=== PATIENT | male | born 1955 | race Caucasian/White ===

== ENCOUNTER → 2020-11-04 09:56 | Outpatient (CLI) | payer MEDICARE, SELFPAY ==
--- NOTE | 2020-11-04 | DI.MRI_ITS ---
Exam(s) MR LOWER EXTREMITY LT WO/W CLINICAL HISTORY: OSTEOMYELITIS, M86.9. TECHNIQUE: Multiplanar multisequence MRI was performed. CONTRAST MATERIAL: IV Contrast: mL of Dotarem contrast administered. COMPARISON: None. FINDINGS: There are findings of a prior amputation of the great toe at the level of the MTP joint. Mild cystic changes seen at the distal aspect of the amputation. There is mild enhancement noted post contrast in the distal aspect of the 1st metatarsal. There are findings of a prior amputation of the head of the 2nd metatarsal. Mild marrow edema is see n in the proximal half of the proximal phalanx of the 2nd toe. There may also be mild edema in the d istal aspect of the 2nd metatarsal. There appears to be a fracture involving the distal aspect of the 3rd metatarsal. There is dorsal di slocation of the 3rd MTP joint. Marrow edema is seen throughout the 3rd metatarsal and the proximal and middle phalanges of the 3rd toe. Following contrast administration, there is enhancement involving the 3rd metatarsal and the proximal and middle phalanges of the 3rd toe suggestive of osteomyelitis. There is edema seen in the soft tissues on the dorsum and plantar surfaces of the foot adjacent to th e 2nd, 3rd and 4th toes. There is fluid seen around the flexor tendon of the 3rd toe. Degenerative signal changes are seen at the tarsometatarsal joints of the foot. There is a soft tissue defect on the plantar surface of the foot adjacent to the head of the 3rd meta tarsal which may reflect an ulcer. IMPRESSION: 1. Findings suspicious for osteomyelitis involving the 3rd metatarsal and the proximal and middle pha langes of the 3rd toe. 2. Skin ulcer on the plantar surface of the foot adjacent to the head of the 3rd metatarsal. 3. Amputations involving the great toe at the MTP joint and the head of the 2nd metatarsal. Marrow e robin is seen in the 2nd metatarsal and the proximal phalanx of the 2nd toe. This may be reactive or related to prior surgery. Osteomyelitis cannot be excluded. DATA REPOSITORY:
[2020-11-04] MEDS: Normal Saline Flush 10 ML SYR IVP (11:29)
[2020-11-04] MEDS: Gadoterate meglumine 20 ML VIAL 16 ML IVP (11:30)
== END ==
PROVIDERS: Visit Provider Podiatrist Foot & Ankle Surgery
DX: L97.429 Non-pressure chronic ulcer of left heel and midfoot with unspecified severity (principal); Z89.412 Acquired absence of left great toe
CPT/HCPCS: 73720

== ENCOUNTER 2021-09-14 11:50 | Day surgery (SDC) | payer OTHER, SELFPAY ==
[2021-09-14 12:03] VITALS: BP 99/66; PULSE 56; RESP 16; TEMP 36.8; O2SAT 97
--- NOTE | 2021-09-14 12:10 | ANES.PREOP_ITS ---
General Info Date of Service Date Performed: 09/14/21 Height: 5 ft 8 in Weight: 71 kg Body Mass Index (BMI): 23.8 Surgical Procedure: Operation Date: 09/14/21 13:40 Proposed Procedure Side Surgeon p Cataract Extraction with IOL Implant Left Lebron Ward MD Meds Allergies and Home Medications Allergies Allergy/AdvReac Type Severity Reaction Status Date / Time No Known Allergies Allergy Verified 09/14/21 12:01 Home Medication Medication Instructions Recorded docusate sodium 100 mg capsule 100 mg PO BID 09/11/21 (Colace) donepezil 23 mg tablet 23 mg PO HS 09/11/21 folic acid 1 mg tablet 2 mg PO DAILY 09/11/21 memantine 5 mg tablet 5 mg PO DAILY 09/11/21 metformin 750 mg tablet,extended 750 mg PO DAILY 09/11/21 release 24 hr olanzapine 2.5 mg tablet 2.5 mg PO DAILY 09/11/21 omeprazole 40 mg capsule,delayed 40 mg PO DAILY 09/11/21 release sertraline 100 mg tablet 100 mg PO DAILY 09/11/21 Current Visit Medications: Current Medications Generic Name Dose Route Start Last Admin Trade Name Freq PRN Reason Stop Dose Admin Acetaminophen 1,000 mg 09/14/21 06:00 Acetaminophen 500 Mg Tab PO Q4H PRN PRN Miscellaneous Medication 0 ml 09/14/21 06:00 Prednisolone 1%, Moxifloxacin 0.5%, Nepafenac 0.1% 5ml Btl OS DIRECTED [facility] Miscellaneous Medication 0 ml 09/14/21 06:00 Tropicam./Phenyleph. 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 Recurrent major depression Tubular adenoma of colon Type 2 diabetes mellitus Tobacco Smoking/Tobacco Use Status: Current every day Tobacco Type: cigars Alcohol Alcohol Intake: never Substance Use Substance use: Never Substance use type: does not use Vital Signs and Lab Results Vital Signs Most Recent Vital Signs in EMR: Temp Pulse Resp BP Pulse Ox 36.8 C 56 L 16 99/66 L 97 09/14/21 12:03 09/14/21 12:03 09/14/21 12:03 09/14/21 12:03 09/14/21 12:03 Lab Results Blood Type / Crossmatch: No Data to Display Complete Blood Count: No Data to Display Complete Metabolic Panel: No Data to Display Liver Function Panel: No Data to Display Coagulation Panel: No Data to Display Cardiac Panel: No Data to Display Arterial Blood Gas: No Data to Display Venous Blood Gas: No Data to Display Pancreas Panel: No Data to Display Thyroid Panel: No Data to Display Infectious Disease: No Data to Display Blood Cultures: No Data to Display Toxicology Panel: No Data to Display Anesthesia Assessment and Plan Anesthesia History Personal History: No History of Anesthesia Complications Family History: No Family History of Anesthesia Complications Exercise Tolerance Exercise Tolerance: Metabolic Equivalents>4 Pertinent Negatives Pertinent Negatives: No Symptoms of GERD, No Major Cardiovascular Symptoms or Complaints and No Major Pulmonary Symptoms or Complaints Cardiac & Pulmonary Exam Cardiac Exam: Normal S1/S2 Heart Sounds Pulmonary Exam: Clear Bilateral Breath Sounds Implantable Cardiac Device Does patient have a Pacemaker or an ICD?: No Airway Exam Known Difficult Airway: No Mallampati Class: 2 Mouth Opening: Normal (> 3cm) Thyromental Distance: Greater than 3 cm Neck Range of Motion: Full ROM Neck Circumference: Normal Teeth Condition: Removable Dentures/Plates Upper Airway Comments: single tooth bottom left front. ASA Classification ASA Score: ASA 2 Emergency Case?: No NPO Status NPO Status: NPO Clears >2 hours, Solids >8 hours Anesthesia Plan Resuscitation Status: Full Code Anesthesia Technique: MAC Anesthesia Airway Planned: Natural Airway Monitors Used: Standard Monitors
[2021-09-14] MEDS: Tropicam./Phenyleph. (1/2.5%) 5 ML BTL OS ×3 (12:30→12:41)
[2021-09-14 12:50] VITALS: BMI 23.8
[2021-09-14] MEDS: Tetracaine 0.5% 4 ML BTL OS (13:27)
[2021-09-14] MEDS: Duovisc Viscoelastic System EACH 1 EACH (13:28)
[2021-09-14] MEDS: Balanced Salt Soln.-PLUS 500 ML BAG (13:28)
[2021-09-14] MEDS: Lidocaine 2% Jelly 6 ML SYR (13:29)
[2021-09-14] MEDS: Povidone-Iodine Ophth 30 ML BTL (13:29)
[2021-09-14] MEDS: Trypan Blue 0.06% 0.5 ML SYR (13:30)
--- NOTE | 2021-09-14 13:59 | W.PM.DSUDISC ---
Discharge Plan Disposition Patient Disposition: HOME Condition: Good Discharge Details Attending Provider: Lebron Ward Home Meds and New Rx's Prescriptions: No Action sertraline 100 mg Tablet 100 mg PO DAILY olanzapine 2.5 mg Tablet 2.5 mg PO DAILY omeprazole 40 mg Capsule,Delayed Release(Dr/Ec) 40 mg PO DAILY docusate sodium [Colace] 100 mg Capsule 100 mg PO BID folic acid 1 mg Tablet 2 mg PO DAILY metformin 750 mg Tablet Extended Release 24 Hr 750 mg PO DAILY memantine 5 mg Tablet 5 mg PO DAILY donepezil 23 mg Tablet 23 mg PO HS Discharge Instructions Stand Alone Forms: Post-op Topical Cataract, Celia Martel (DSU) Discharge Orders Discharge Orders: Discharge Order (Routine); Ordered 09/14/21 Ordered By: Lebron Ward DS: Diagnosis Discharge Diagnosis (1) Nuclear sclerotic cataract of left eye: Status: Resolved (2) Cortical cataract of left eye: Status: Resolved (3) Posterior subcapsular age-related cataract of left eye: Status: Resolved
--- NOTE | 2021-09-14 14:03 | ROE_ITS ---
Date of service: 09/14/21 Time of Service: 13:03 Operative Note Operative Note DATE OF PROCEDURE: 09/14/21 PRE-OP DIAGNOSIS: Hypermature nuclear/cortical/posterior subcapsular cataract, left eye Absent red reflex, left eye POST-OP DIAGNOSIS: same PROCEDURE: Cataract extraction using phacoemulsification with intraocular lens implant, left eye, using capsular staining with Vision Blue SURGEON: Lebron Ward ANESTHESIA TYPE: Local By Surgeon and MAC Refer to Anesthesia Record COMPLICATIONS: None Patient was transported to: same day Patient's condition: stable Implants: [employer] Tecnis [id number] Indications: Progressive decreased vision due to cataract, left eye, with poor red reflex Procedure Description: CATARACT SURGERY OPERATIVE REPORT PREOPERATIVE DIAGNOSIS: 1. Hypermature nuclear/cortical/posterior subcapsular cataract, left eye 2. Poor red reflex secondary to #1 POSTOPERATIVE DIAGNOSIS: Same OPERATION: 1. Cataract extraction using phacoemulsification with posterior chamber intraocular lens implant, left eye. 2. Capsular staining with Vision Blue 3. Insertion of capsular tension ring, left eye IOL: IOL Credit Card Analyst/Model: [employer] / WILY Tecnis [id number] IOL Power: + 25.0 diopters IOL Serial Number: [id number] Optic Diameter: 6.0 mm Haptic/Overall Diameter: 13.0 mm PHACO INFO: Edwin [employer] Vision System with OZil and Active Fluidics Cumulative Dispersed Energy (CDE): 38.28 seconds SURGEON: Lebron Ward MD, RICHIE ANESTHESIA: Monitored A [facility] (MAC), with local sub-tenon's anesthetic infiltration COMPLICATIONS: None SPECIMENS: None INDICATIONS FOR PROCEDURE: The patient is a 65-year-old gentleman with history of diminished visual acuity in his left eye. He is noted to have a dense mature nuclear/cortical/posterior subcapsular cataract hand motions vision. He is previously undergone cataract surgery in the other eye approximately 15 years ago. The option of cataract surgery was offered to the patient and he felt symptomatic enough that he wished to proceed PROCEDURE: The correct surgical eye was identified and marked as the left eye and the pupil was dilated in the preoperative area using mydriatics and cycloplegics. The dilated pupil size was 5.5 mm. He elected to proceed without oral sedation. The patient was brought to the operating room where cardiopulmonary monitoring was instituted and surgical time-out was performed, confirming the correct operative eye and IOL power. Topical anesthesia was administered and ophthalmic povidone-iodine 5% was instilled into the conjunctival fornices. Lidocaine gel was applied to the cornea and the geovanny-ocular area was prepped with Betadine 10% solution and draped in the usual sterile fashion for intraocular surgery, including an aperture drape. A Tegaderm transparent film dressing was cut in half and used to cover the lashes and lid margins. Care was taken to sequester the lashes and lid margins under the Tegaderm dressing. A lid speculum was placed between the lids of the operative eye and the Edwin Lux[employer] Revalia operating microscope was maneuvered into position. Nelly scissors were then used to make a conjunctival buttonhole approximately 6mm posterior to the limbus in the inferonasal quadrant. Blunt dissection was carried out to expose bare sclera, and a blunt-tipped sub-tenon?s anesthesia cannula was introduced and passed posteriorly along the globe where non- preserved plain lidocaine was injected into posterior sub-Tenon?s space. A sideport knife was used to make a paracentesis port superiorly/superiortemporally. Intraocular phenylephrine/lidocaine was injected int the anterior chamber.. Air was then injected into the anterior chamber, followed by Vision Blue, which was painted over the anterior capsule and then irrigated out using BSS. The anterior chamber was filled with viscoelastic. Viscoat was used to protect the corneal endothelium. A 2.4 mm keratome knife was used to create a 2-plane near clear corneal tunnel extending approximately 2 mm into clear cornea temporally. A flap was raised on the anterior capsule and capsulorhexis forceps were used to complete a continuous curvilinear capsulorhexis of 5.0 mm. A spiral technique of capsulorhexis was utilized, starting very small and spiraling out to 5 mm to minimize the risk of [place] flag sign. Very little liquefied cortex was present. The capsule was quite thin with moderate zonular laxity. Balanced salt solution was then used to perform cortical cleaving hydrodissection and nuclear hydrodelineation until the lens could be freely rotated within the capsular bag. The lens nucleus was then disassembled and removed within the capsular bag and iris plane using phacoemulsification. A vertical chop method was used to minimize stress on the zonules, which were noted to be quite loose. Additional Viscoat was injected under the corneal dome intermittently to protect the corneal endothelium. Cortical material was removed using the 45-degree angled silicone I/A tip with 0.3mm port. The posterior capsule was carefully polished to remove as much residual lens epithelial cells as safely possible. The capsular bag was then inflated and the anterior chamber deepened with viscoelastic. A Morcher Type 15 capsular tension ring was inserted into the capsular bag to provide zonular support. lens implant described above was inserted into the capsular bag using the WILY Nulato Injector. A Kuglen hook was used to dial the IOL into position. Residual viscoelastic was then removed first from posterior to the IOL, then from the anterior chamber using the I/A handpiece. The lens implant was noted to center nicely within the capsular bag. The incisions were stromally hydrated, and the anterior chamber was reformed using BSS. Then 0.5cc of moxifloxacin 1.0mg/ml were injected into the capsular bag and anterior chamber. The incisions were checked with a Weck spear and found to be secure. Several drops of ophthalmic povidone-iodine 5% were then applied to the eye followed by two drops of Imprimis combination prednisolone/moxifloxacin/nepafenac solution. The drapes were removed and a clear plastic protective eye shield was placed over the eye. The patient was then returned to Same Day Surgery in stable condition.
[2021-09-14 14:05] VITALS: BP 101/64; PULSE 52; RESP 16; TEMP 36.4; O2SAT 98
--- NOTE | 2021-09-14 14:07 | W.ANESPOSTOP ---
Postoperative Evaluation Date, Time and Location Date Performed: 09/14/21 Time Performed: 14:07 Patient Location: Day Surgery Unit Vital Signs Most Recent Imported Vital Signs: Most Recent Vital Signs Temp Pulse Resp BP Pulse Ox 36.4 C L 52 L 16 101/64 98 09/14/21 14:05 09/14/21 14:05 09/14/21 14:05 09/14/21 14:05 09/14/21 14:05 Pain Score Most Recent Pain Score: Most Recent Pain Score Pain Level 0 09/14/21 14:05 Assessment Mental Status: Awake (Alert & Oriented to Patient Baseline) Airway and Respiratory Function: Patent airway with normal (patient baseline) respiratory exam Cardiovascular Function: Hemodynamically Stable Hydration Status: Adequately Hydrated Nausea & Vomiting: No Nausea or Vomiting Pain: Pt. Denies Any Pain Peripheral Nerve Block: Patient did not receive a nerve block
== END 2021-09-14 14:18 | disposition home or self-care (01) ==
PROVIDERS: Visit Provider Ophthalmology
PROC: (CPT 66982; principal; 2021-09-14 13:30)
DX: H25.812 Combined forms of age-related cataract, left eye (principal); H27.8 Other specified disorders of lens; E11.9 Type 2 diabetes mellitus without complications
CPT/HCPCS: 66982; V2632